=== PATIENT | male | born 2000 | race Caucasian/White ===

== ENCOUNTER 2025-01-29 10:49 | Emergency (ER) | payer OTHER ==
[~2025-01-29] VITALS: Ht 180.3 cm; Wt 108.6 kg
[2025-01-29 11:00] VITALS: TEMP 99.1
[2025-01-29] MEDS: KETOROLAC 30 MG/ML 1 ML VIAL IV ONE (11:46)
[2025-01-29] MEDS: ONDANSETRON 4MG 2ML VIAL IV ONE (11:46)
[2025-01-29] MEDS: NS (Normal Saline) 0.9% 1,000 ML IV ONE (11:46)
[2025-01-29 11:56] LABS: BASO # 0.1 10^3/uL (0.0-0.2); BASO % 0.7 % (0.0-1.0); EOS # 0.2 10^3/uL (0.0-0.5); EOS % 3.1 % (0.0-3.0); LYMPH # 0.6 10^3/uL (1.5-5.0); LYMPH % 7.8 % (24.0-44.0); MONO # 0.7 10^3/uL (0.0-0.8); MONO % 9.8 % (2.0-8.0); NEUTROPHILS # 5.6 10^3/uL (1.5-8.5); NEUTROPHILS % 78.2 % (36.0-66.0); PLATELET COUNT, AUTOMATED 275 10^3/uL (150-450)
[2025-01-29 12:32] LABS: ALT/SGPT 42 U/L (7.0-40); AST/SGOT 25 U/L (<34); CALCIUM LEVEL 9.6 MG/DL (8.5-10.1); CARBON DIOXIDE LEVEL 28 MMOL/L (20-31); CHLORIDE LEVEL 104 MMOL/L (98-107); CREATININE FOR GFR 0.96 MG/DL (0.70-1.30); GLOMERULAR FILTRATION RATE > 90.0 (>60); POTASSIUM SERUM 4.6 MMOL/L (3.5-5.1); SODIUM LEVEL 142 MMOL/L (136-145)
[2025-01-29] MEDS ORDERED: HOME MED LIST COMPLETE! XX SCH (13:05)
[2025-01-29 13:34] VITALS: BP 138/79; O2SAT 100
[2025-01-29] MEDS ORDERED: ONDA-282 PO (13:47)
== END 2025-01-29 13:55 | disposition home or self-care (01) ==
LOC: M ED 10:49
DX: R10.9 Unspecified abdominal pain (principal); F17.290 Nicotine dependence, other tobacco product, uncomplicated
CPT/HCPCS: 80048; 80076; 83690; 85025; 96374; 96375; 99284; J1885; J2405